=== PATIENT | male | born 1990 | race Caucasian/White ===

== ENCOUNTER 2017-04-09 12:45 | Emergency (ER) | payer MEDICAID ==
[2017-04-09] MEDS ORDERED: LORazepam 0.5 MG TABLET PO STA (13:13)
--- NOTE | 2017-04-09 13:26 | ED Physician Documentation ---
PD HPI HEADACHE - Stated complaint Stated Complaint: HEAD ACHE - Chief complaint Chief Complaint: Neuro - History obtained from History obtained from: Patient, Family () - History of Present Illness Timing - onset: How many weeks ago (1) Timing - onset during: Other (sex) Timing - duration: Hours (2) Timing - details: Abrupt onset Pain level max: 10 Pain level now: 4 Location: Left Quality: Aching, Other (sharp, stabbing) Associated symptoms: No: Fever, Stiff neck, Nausea, Vomiting, Weakness, Numbness , Syncope, Seizure, Eye pain, Vision changes Improved by: Rest, Meds (motrin) Worsened by: Light, Noise, Moving Contributing factors: No: Anticoagulated, Possible carbon monoxide, Hypertension Similar symptoms before: Has not had sx before Recently seen: Not recently seen - Additional information Additional information: father has history of migraines. no aneurysms in family. headaches seem to occur mainly with intercourse. exercise does not seem to induce the headaches. no neuro deficits. Review of Systems Ten Systems: 10 systems reviewed and negative Constitutional: denies: Fever, Chills Eyes: denies: Decreased vision Ears: denies: Ear pain Nose: reports: Congestion (states clear mucus when headache occurs). denies: Rhinorrhea / runny nose Throat: denies: Sore throat Cardiac: denies: Chest pain / pressure Respiratory: denies: Cough, Wheezing GI: denies: Abdominal Pain, Nausea, Vomiting, Diarrhea Skin: denies: Rash Musculoskeletal: denies: Neck pain, Back pain Neurologic: denies: Focal weakness, Numbness, Syncope, Seizure, Confused, Altered mental status PD PAST MEDICAL HISTORY - Past Medical History Past Medical History: Yes GI: GERD (hiatal hernia) Other Past Medical History: lipomas, dentigenesis imperfecta - Past Surgical History Past Surgical History: Yes Other past surgical history: lipoma removal - Present Medications Home Medications: Ambulatory Orders Medication Instructions Recorded Confirmed Ibuprofen [Motrin] 04/09/17 Omeprazole [PriLOSEC] 04/09/17 - Allergies Allergies/Adverse Reactions: Allergies Allergy/AdvReac Type Severity Reaction Status Date / Time No Known Drug Allergies Allergy Verified 04/09/17 12:56 - Living Situation Living Situation: reports: With family Living Arrangement: reports: At home - Social History Does the pt smoke?: No Does the pt have substance abuse?: No - Family History Family history: reports: Non contributory PD ED PE NORMAL - Vitals Vital signs reviewed: Yes - General General: Alert and oriented X 3, No acute distress, Well developed/nourished - HEENT HEENT: Atraumatic, PERRL, EOMI, Ears normal, Moist mucous membranes, Pharynx benign, Dentition benign, Other (no mild L frontal sinus tenderness) - Neck Neck: Supple, no meningeal sign - Cardiac Cardiac: RRR, Strong equal pulses - Respiratory Respiratory: No respiratory distress, Clear bilaterally - Abdomen Abdomen: Soft, Non tender, Non distended - Back Back: No spinal TTP - Derm Derm: Warm and dry - Extremities Extremities: No edema, No calf tenderness / cord - Neuro Neuro: Alert and oriented X 3, proposal manager writer 2-12 intact, No motor deficit, No sensory deficit, Normal speech, Other (normal cerebellar tests) Eye Opening: Spontaneous Motor: Obeys Commands Verbal: Oriented GCS Score: 15 - Psych Psych: Normal mood, Normal affect Results - Vitals Vitals: Vital Signs - 24 hr 04/09/17 04/09/17 04/09/17 12:53 15:44 18:27 Temperature 36.3 C L 36.3 C L 36.6 C Heart Rate 73 83 100 Respiratory 15 16 18 Rate Blood Pressure 140/101 H 125/76 127/70 O2 Saturation 100 98 96 04/09/17 19:26 Temperature 36.6 C Heart Rate 95 Respiratory 18 Rate Blood Pressure 125/74 O2 Saturation 97 Oxygen O2 Source Room air - Labs Labs: Laboratory Tests 04/09/17 04/09/17 14:01 14:01 WBC 6.2 RBC 4.94 Hgb 14.7 Hct 42.2 MCV 85.4 MCH 29.7 MCHC 34.8 RDW 12.7 Plt Count 244 MPV 7.4 Neut # 3.6 Lymph # 1.9 Harding # 0.5 Eos # 0.1 Baso # 0.0 Absolute Nucleated RBC 0.00 Nucleated RBC % 0.0 Sodium 137 Potassium 3.2 L Chloride 97 L Carbon Dioxide 27 Anion Gap 13.0 BUN 12 Creatinine 0.9 Estimated GFR (MDRD) 100 Glucose 107 H Calcium 9.3 Total Bilirubin 0.7 AST 116 H ALT 186 H Alkaline Phosphatase 90 Total Protein 8.0 Albumin 4.4 Globulin 3.6 Albumin/Globulin Ratio 1.2 Lipase 15 L - Rads (name of study) CT angio head Radiology: Prelim report reviewed, EMP read contemporaneously, See rad report ( 1. There is a subtle, abnormal finding in proximal supraclinoid segment left ICA. There appears to be a shallow, wide-necked vascular outpouching arising from the undersurface of the proximal supraclinoid segment. This could represent a small blister-type aneurysm (see image 72 of series 10). On sagittal reformations, the neck measures about 3 mm and the lesion appears to bulge inferiorly for about 1.2 mm. This abnormality could be further evaluated with 3-D catheter angiography. 2. Otherwise, unremarkable intracranial CT angiogram. No other potential intracranial aneurysm is identified. ) CT angio neck Radiology: Prelim report reviewed, EMP read contemporaneously, See rad report ( Normal neck CT angiogram. No evidence of dissection or stenosis in the extracranial carotid or vertebral arteries) PD MEDICAL DECISION MAKING - ED course Complexity details: reviewed results, re-evaluated patient, considered differential, d/w patient, d/w family, d/w water resource consultant ED course: Patient is a 26-year-old male who presents to the emergency department with a headache during intercourse a week ago and then a recurrence of the headache a few days ago. Asymptomatic in the emergency department. Normal neurological exam. GCS 15. No evidence of subarachnoid hemorrhage. We did discuss a lumbar puncture, but he is very afraid of needles and refuses the test at this point. He does understand that there is a risk of a missed subarachnoid hemorrhage by not performing this test. Discussed the case with Dr. Jc, neurosurgery at [facility] in [place] who recommends following up with [facility] neurosurgery for possible coiling versus clipping. Information given to patient and . Also informed him to refrain from any strenuous or vigorous activity. Patient and family counseled regarding signs and symptoms for which I believe and urgent re-evaluation would be necessary. Patient with good understanding of and agreement to plan and is comfortable going home at this time This document was made in part using voice recognition software. While efforts are made to proofread this document, sound alike and grammatical errors may occur. Departure - Departure Disposition: 01 Home, Self Care Clinical Impression: Headache Qualifiers: Headache type: unspecified Headache chronicity pattern: acute headache Intractability: not intractable Qualified Code(s): R51 - Headache Condition: Good Instructions: ED Cephalgia Unspecified Follow-Up: your,doctor in 1 week [Other] Comments: Call [facility] for an appointment for your carotid aneurysm. I spoke with Dr. Drake hampton. [phone] is the clinic number. Return if you worsen, including recurrent headache or new or worsening symptoms. We discussed a lumbar puncture memo, but you have declined this. Return if you change your mind about this as well. It is important to follow up with neurosurgery and bring your disc of images with you. Refrain from strenuous activity until cleared by neurosurgery. Discharge Date/Time: 04/09/17 19:47
[2017-04-09 14:17] LABS: BASOPHILS % (AUTO) 0.4 %; EOSINOPHILS # (AUTO) 0.1 10^3/uL (0.0-0.7); EOSINOPHILS % (AUTO) 1.9 %; HGB - HEMOGLOBIN 14.7 g/dL (14.0-18.0); LYMPHOCYTES # (AUTO) 1.9 10^3/uL (1.5-3.5); LYMPHOCYTES % (AUTO) 31.3 %; MEAN CORPUSCULAR HEMOGLOBIN 29.7 pg (27.0-31.0); MEAN CORPUSCULAR HGB CONC 34.8 g/dL (32.0-36.0); MEAN CORPUSCULAR VOLUME 85.4 fL (80.0-94.0); MEAN PLATELET VOLUME 7.4 fL (7.4-11.4); MONOCYTES # (AUTO) 0.5 10^3/uL (0.0-1.0); MONOCYTES % (AUTO) 7.9 %; NEUTROPHILS # (AUTO) 3.6 10^3/uL (1.5-6.6); NEUTROPHILS % (AUTO) 58.5 %; PLT - PLATELET COUNT 244 10^3/uL (130-450); RED BLOOD COUNT 4.94 10^6/uL (4.70-6.10); RED CELL DISTRIBUTION WIDTH 12.7 % (12.0-15.0); WHITE BLOOD COUNT 6.2 x10^3/uL (4.8-10.8)
[2017-04-09 14:25] LABS: ALBUMIN 4.4 g/dL (3.2-5.5); ALBUMIN/GLOBULIN RATIO 1.2 (1.0-2.2); BILIRUBIN,TOTAL 0.7 mg/dL (0.2-1.0); CALCIUM 9.3 mg/dL (8.5-10.3); CREATININE 0.9 mg/dL (0.6-1.2)
[2017-04-09] MEDS ORDERED: IOPAMIDOL-300 100 ML VIAL ONE (16:01)
[2017-04-09] MEDS ORDERED: LORazepam 2 MG/ML VIAL IVP STA (16:14)
[2017-04-09] MEDS ORDERED: IOPAMIDOL-300 100 ML VIAL IVP ONE (17:00)
--- NOTE | 2017-04-09 17:31 | CT Preliminary Report ---
Exam: CT HEAD ANGIO Impression: Head CT Negative study. No evidence of subarachnoid or other intracranial hemorrhage. CT angiogram head 1. There is a subtle, abnormal finding in proximal supraclinoid segment left ICA. There appears to be a shallow, wide necked vascular outpouching arising from the undersurface of the proximal supraclino id segment. This could represent a small blister type aneurysm (see image 72 of series #10). On sagit nancy reformations the neck measures about 3 mm and the lesion appears to bulge inferiorly for about 1. 2 mm. This abnormality could be further evaluated with 3-D catheter angiography. 2. Otherwise unremarkable intracranial CT angiogram. No other potential intracranial aneurysm is iden tified. SITE ID: [id number]
--- NOTE | 2017-04-09 17:35 | CT Preliminary Report ---
Exam: CT NECK ANGIO Impression: Normal neck CT angiogram. No evidence of dissection or stenosis in the extracranial carotid or verteb ral arteries. SITE ID: [id number]
--- NOTE | 2017-04-09 17:43 | CT Report ---
HEAD CT WITHOUT AND WITH CONTRAST AND CT ANGIOGRAM HEAD INDICATION: 26-year-old male with left-sided headaches with intercourse over past 6 days. TECHNIQUE: Head CT: Sequential 5 mm axial images were obtained through the brain, prior to and following the CT angiogram . CT angiogram head: 80 mL of Isovue-300 contrast were injected at a rapid rate through a large bore antecubital intraveno us catheter. The head was scanned helically during arterial phase. Data was reconstructed into 0.5 mm axial images. In addition, MIP reconstructions have been generated in multiple projections to allow better assessments of the intracranial arteries. In accordance with CT protocol optimization, one or more of the following dose reduction techniques w ere utilized for this exam: automated exposure control, adjustment of mA and/or KV based on patient s ize, or use of iterative reconstructive technique. COMPARISON: None. FINDINGS: Head CT: Ventricular size is normal. Attenuation of cortex and white matter appears normal. No intracranial he morrhage or abnormal extra-axial fluid collection. No mass-effect or midline shift. Postcontrast sequence shows no evidence of an enhancing space-occupying mass lesion. There is normal intravascular contrast enhancement in the dural venous sinuses and deep venous structures. 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 The right transverse and sigm oid sinuses are dominant. This represents a known anatomical variant. The mastoid air cells and middle ear cavities are clear. The imaged paranasal sinuses appear clear. CT angiogram head: Anterior circulation: The internal carotid arteries appear widely patent bilaterally. Although very subtle, there appears t o be a shallow, wide-necked vascular outpouching arising from the undersurface of the proximal suprac linoid segment of the right internal carotid artery (see image 72 of series 10). The neck measures ab out 3 mm and the lesion bulges inferiorly for roughly 1.2 mm. This could represent a small, shallow, blister-type aneurysm. No other potential ICA aneurysm is identified. There is minor irregularity in the contour along the undersurface of the proximal supraclinoid right internal carotid artery (see im age 85 of series 10). However, no discrete, saccular-type outpouching is identified. The A1 segment o f the left anterior cerebral artery is mildly hypoplastic with larger right A1 segment. An anterior c ommunicating artery is demonstrated. There appears to be good filling of the A2 and distal AURA branch es bilaterally. No aneurysms are identified in either anterior cerebral artery circulation. The middle cerebral arteries are unremarkable. No aneurysm is demonstrated and there is no evidence o f occlusion or hemodynamically significant stenosis affecting main branches of either middle cerebral artery. There appear to be a similar number of opacified M3 and M4 branches bilaterally. Posterior circulation: The right vertebral artery is very small. 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 The rig ht vertebral artery appears to terminate intracranially as the right PICA. This represents a known an atomical variant. Dominant left vertebral artery is widely patent. The left PICA is patent. No aneury sm at its origin. The basilar artery, superior cerebellar arteries and posterior cerebral arteries ap pear widely patent. There is a moderate-sized right posterior communicating artery. No definite left posterior communicator is demonstrated. No aneurysms are seen arising from the basilar artery trunk o r apex. IMPRESSION: Head CT: Negative study. No evidence of subarachnoid or other intracranial hemorrhage. CT angiogram head: 1. There is a subtle, abnormal finding in proximal supraclinoid segment left ICA. There appears to be a shallow, wide-necked vascular outpouching arising from the undersurface of the proximal supraclino id segment. This could represent a small blister-type aneurysm (see image 72 of series 10). On sagitt al reformations, the neck measures about 3 mm and the lesion appears to bulge inferiorly for about 1. 2 mm. This abnormality could be further evaluated with 3-D catheter angiography. 2. Otherwise, unremarkable intracranial CT angiogram. No other potential intracranial aneurysm is miriam ntified. A preliminary report for this examination was called to Dr. Herman following interpretation on 03/31 at 1740 hrs. Referring Provider Line: [phone] SITE ID: [id number]
--- NOTE | 2017-04-09 18:08 | CT Report ---
CT ANGIOGRAM NECK INDICATION: 26-year-old male. Left-sided headaches with intercourse for the past six days. Please ass ess. TECHNIQUE: 80 mL of Isovue-300 contrast were injected at a rapid rate through a large bore, right antecubital in travenous catheter. The neck was scanned helically during arterial phase. Data was reconstructed into 0.5 mm axial images. In addition, MIP reconstructions have been generated in the sagittal and barrera l planes. Significant arterial stenoses will be assessed using NASCET type measurements. In accordance with CT protocol optimization, one or more of the following dose reduction techniques w ere utilized for this exam: automated exposure control, adjustment of mA and/or KV based on patient s ize, or use of iterative reconstructive technique. COMPARISON: None. FINDINGS: There is normal branching of the aortic arch. No stenoses are identified in the first order, supra-ao rtic arteries. Right carotid artery: Normal. Left carotid artery: Normal. Right vertebral artery: Diffusely hypoplastic. Widely patent from origin to distal V3 segment. Left vertebral artery: Dominant left vertebral artery is widely patent from its origin to its distal V3 segment. No focal pathology is demonstrated. IMPRESSION: Normal neck CT angiogram. No evidence of dissection or stenosis in the extracranial carotid or verteb ral arteries. Referring Provider Line: [phone] SITE ID: [id number]
[2017-04-09 19:27] VITALS: BP 125/74
== END 2017-04-09 19:47 | disposition home or self-care (01) ==
LOC: ED 12:45
DX: R51 Headache (principal)
CPT/HCPCS: 36415; 70496; 70498; 80053; 83690; 85025; 96374; 99283; 99285; A9270; J2060; Q9967